=== PATIENT | female | born 1960 | race Caucasian/White ===

== ENCOUNTER 2016-08-03 02:15 | Emergency (ER) | payer OTHER ==
[~2016-08-03] VITALS: Ht 157.5 cm; Wt 74.8 kg
[2016-08-03 02:23] VITALS: BP 152/107
--- NOTE | 2016-08-03 02:29 | NUR ---
PT TAKEN TO BED 4
--- NOTE | 2016-08-03 02:33 | NUR ---
Dr. Rodriguez evaluating patient at bedside.
[2016-08-03] MEDS ORDERED: NACL 0.9% 500 ML IV ONE (02:36)
--- NOTE | 2016-08-03 02:36 | NUR ---
BIB FAMILY WITH C/O SEVERE ABDOMINAL PAIN 8/10, RADIATING TO RIGHT FLANK X1 DAY. NAUSEA NOTED. PT DENIES V/D; SKIN IS PINK/WARM/DRY; AAOX4 WITH EVEN AND STEADY GAIT; LUNGS CLEAR BL; HR EVEN AND REGULAR; PT DENIES ANY FEVER, CP, SOB, OR COUGH AT THIS TIME; PATIENT STATES PAIN OF 8/10 AT THIS TIME; VSS; PATIENT POSITIONED FOR COMFORT; HOB ELEVATED; BEDRAILS UP X2; BED DOWN. ER MD MADE AWARE OF PT STATUS.
[2016-08-03] MEDS ORDERED: KETOROLAC 30 MG/ML VIAL IVP ONE (02:40)
[2016-08-03] MEDS ORDERED: ONDANSETRON 4 MG/2 ML VIAL IVP ONE (02:40)
--- NOTE | 2016-08-03 02:40 | NUR ---
PHLEB AT BEDSIDE FOR LAB DRAW
[2016-08-03 02:49] LABS: BASOPHILS # (AUTO) 0.3 K/uL (0.00-0.22); BASOPHILS % (AUTO) 2.6 % (0.0-2.0); EOSINOPHILS # (AUTO) 0.2 K/uL (0-0.4); EOSINOPHILS % (AUTO) 2.3 % (0.0-4.0); HEMATOCRIT 41.5 % (36-48); HEMOGLOBIN 13.7 g/dL (12.0-16.0); LYMPHOCYTES # (AUTO) 2.7 K/uL (2.5-16.5); LYMPHOCYTES % (AUTO) 26.2 % (20.5-51.1); MEAN CORPUSCULAR HEMOGLOBIN 28 pg (27-31); MEAN CORPUSCULAR HGB CONC 33 g/dL (33-37); MEAN CORPUSCULAR VOLUME 85 fL (80-94); MONOCYTES # (AUTO) 0.5 K/uL (0.8-1.0); MONOCYTES % (AUTO) 4.4 % (1.7-9.3); NEUTROPHILS # (AUTO) 6.6 K/uL (1.8-7.7); NEUTROPHILS % (AUTO) 64.5 % (42.2-75.2); PLATELET COUNT (AUTO) 205 K/uL (140-450); RED BLOOD CELL COUNT(AUTO) 4.87 MIL/uL (4.20-5.40); WHITE BLOOD COUNT (AUTO) 10.3 K/uL (4.8-10.8)
[2016-08-03 03:01] LABS: ANION GAP 13.1 (8-16); CALCIUM 8.9 mg/dL (8.5-10.1); CARBON DIOXIDE 28.3 mmol/L (21-32); CREATININE 0.8 mg/dL (0.6-1.3); POTASSIUM 3.4 mmol/L (3.5-5.1)
[2016-08-03 03:08] LABS: ALBUMIN 3.8 g/dL (3.4-5.0); TOTAL BILIRUBIN 0.5 mg/dL (0.0-1.0); TOTAL PROTEIN, SERUM 7.8 g/dL (6.4-8.2)
--- NOTE | 2016-08-03 03:34 | NUR ---
Ultrasound at bedside.
--- NOTE | 2016-08-03 04:15 | NUR ---
Patient discharged with v/s stable. Written and verbal after care instructions given and explained. Patient alert, oriented and verbalized understanding of instructions. Ambulatory with steady gait. All questions addressed prior to discharge. ID band removed. Patient advised to follow up with PMD. Rx of TRAMADOL, ZOFRAN AND PROTONIX given. Patient educated on indication of medication including possible reaction and side effects. Opportunity to ask questions provided and answered.
[2016-08-03 04:18] VITALS: BP 148/93
== END 2016-08-03 04:15 | disposition home or self-care (01) ==
LOC: MED 02:15
DX: K29.00 Acute gastritis without bleeding (principal); R03.0 Elevated blood-pressure reading, without diagnosis of hypertension; Z90.710 Acquired absence of both cervix and uterus
CPT/HCPCS: 36415; 76705; 80053; 81002; 81025; 83690; 85025; 96361; 96374; 96375; 99285; J1885; J2405; J7030

== ENCOUNTER 2016-08-06 18:42 | Emergency (ER) | payer OTHER ==
[~2016-08-06] VITALS: Ht 162.6 cm; Wt 77.1 kg
[2016-08-06 19:16] VITALS: BP 157/91
--- NOTE | 2016-08-06 20:52 | NUR ---
PT TAKEN TO BED 4
--- NOTE | 2016-08-06 20:56 | NUR ---
Dr. Rodriguez evaluating patient at bedside.
[2016-08-06] MEDS ORDERED: MORPHINE SULFATE 2 MG/ML SYR IVP ONE (21:10)
[2016-08-06] MEDS ORDERED: ONDANSETRON 4 MG/2 ML VIAL IVP ONE (21:10)
[2016-08-06] MEDS ORDERED: NACL 0.9% 1,000 ML IV ONE (21:10)
--- NOTE | 2016-08-06 21:57 | NUR ---
PT TAKEN TO CT
--- NOTE | 2016-08-06 22:15 | NUR ---
PT RETURN FROM CT
[2016-08-07 00:17] VITALS: BP 142/88
--- NOTE | 2016-08-07 00:18 | NUR ---
Patient discharged with v/s stable. Written and verbal after care instructions given and explained. Patient alert, oriented and verbalized understanding of instructions. Ambulatory with steady gait. All questions addressed prior to discharge. ID band removed. Patient advised to follow up with PMD. Rx of MAGNESIUM CITRATE LOW SODIUM 300CC, MIRALAX POWDER given. Patient educated on indication of medication including possible reaction and side effects. Opportunity to ask questions provided and answered.
== END 2016-08-07 00:18 | disposition home or self-care (01) ==
LOC: MED 18:42
DX: R10.11 Right upper quadrant pain (principal)
CPT/HCPCS: 74022; 74176; 81002; 96361; 96374; 96375; 99285; J2270; J2405; J7030